=== PATIENT | female | born 1985 | race Caucasian/White ===

== ENCOUNTER 2021-06-07 18:38 | Emergency (ER) | payer BC, SELFPAY ==
[2021-06-07 18:40] VITALS: BP 129/91; PULSE 112; RESP 18; TEMP 36.3; O2SAT 98; BMI 28.2
--- NOTE | 2021-06-07 19:05 | US_ITS ---
STUDY: FIRST TRIMESTER OBSTETRICAL ULTRASOUND REASON FOR EXAM: Female, 35 years old vaginal bleeding w/ preg LMP: 03/29/2021 TECHNIQUE: Transvaginal TECHNICAL QUALITY: Adequate. PRIOR ULTRASOUND: None. FINDINGS: There is no demonstrated intrauterine gestational sac. The uterus measures 9.0 x 4.3 x 4.3 cm. 2.9 cm myometrial fibroid. The cervix is closed. The right ovary measures 2.5 x 1.1 x 1.6 cm. There is no right ovarian cyst. There is no visualized right adnexal mass or complex lesion. The left ovary measures 2.5 x 2.5 x 1.9 cm. 1.4 cm simple appearing cyst. There is no visualized left adnexal mass or complex lesion. There is no fluid in the cul de sac. US/Transvaginal w/Preg US IMPRESSION: No intrauterine identified. No complex adnexal masses or pelvic free fluid. Electronically Signed: Braulio Flores MD ([place]) at 21:00 EDT ,
--- NOTE | 2021-06-07 19:25 | ED.VIS.FEGU ---
HPI <Dr. Blanca العلي MD - Last Filed: 06/08/21 01:14> HPI - Female History of Present Illness Chief Complaint: Vag Bld, Preg <VESTA PRIETO - Last Filed: 06/08/21 00:57> HPI - Female History of Present Illness Informant: patient Pain Pain: Positive for Pelvic Pain (Cramping) Onset: Today (This morning) Context: Gradual Onset Timing: Continuous Quality: Positive for Cramping Location: Suprapubic Current Severity: 3/10 Bleeding Issue: Positive for Vaginal bleeding Onset: - (30 minutes prior to arrival) Current Severity: Mild Associated Symptoms Associated Symptoms: Negative for Dysuria, Frequency and Urgency Test: Positive (4 at home tests) P: 0 Ab: 1 Narrative Narrative: Patient presents secondary to vaginal bleeding that began 30 minutes prior to arrival. Patient states this morning she began to have lower abdominal cramping and 1 spot of bright red blood when wiping. At that time, patient called [facility] gynecology office. Patient has appointment on Wednesday for first visit, but was told to come to the emergency department should bleeding develop. Patient states cramping is 3 out of 10, and appears comfortable in the bed. Patient states her last menstrual period was April 01, and has taken 4 at home tests. Recent Illness/Hospitalization: No PFSH <Dr. Blanca العلي MD - Last Filed: 06/08/21 01:14> PFSH Medical History Anxiety GERD (gastroesophageal reflux disease) Home Medications omeprazole 20 mg PO DAILY 06/07/21 [History Last Taken Unknown] Allergy/AdvReac Type Severity Reaction Status Date / Time No Known Allergies Allergy Verified 06/07/21 18:39 Surgical History no surgical history Social History (Updated 06/07/21 @ 19:32 by VESTA PRIETO) Smoking Status: Never smoker alcohol intake: current alcohol intake frequency: holidays/special occasions only substance use type: does not use <VESTA PRIETO - Last Filed: 06/08/21 00:57> PFSH no surgical history <VESTA PRIETO - Last Filed: 06/08/21 00:57> ROS ED Constitutional Constitutional ED: Denies chills, fever(s) or sweats Eyes Eyes: Denies change in vision ENT ENT ED: Denies ear pain, rhinorrhea or sore throat Cardiovascular Cardiovascular: Denies chest pain or palpitations Respiratory/Chest Respiratory/Chest: Denies cough or dyspnea Gastrointestinal Gastrointestinal: Reports nausea and other Details: Lower abdominal cramping. ; Denies vomiting Genitourinary Genitourinary ED: Reports vaginal bleeding; Denies dysuria, hematuria or urinary frequency Musculoskeletal Musculoskeletal: Denies myalgias Integumentary Denies rash Neurologic Neurologic: Denies headache(s) or weakness Psychiatric Psychiatric: Reports anxiety; Denies depression Endocrine Endocrinology: Denies polydipsia, polyphagia or polyuria EXAM <Dr. Blanca العلي MD - Last Filed: 06/08/21 01:14> Physical Exam Const Vital Signs: 06/07/21 18:40 06/07/21 20:39 Temperature 97.3 F L Temperature Source Temporal Pulse Rate 112 H Respiratory Rate 18 17 Blood Pressure 129/91 H Blood Pressure Mean 103 Pulse Ox 98 Oxygen Delivery Method Room Air <VESTA IDA - Last Filed: 06/08/21 00:57> Physical Exam Const Vital Signs: 06/07/21 18:40 06/07/21 20:39 Temperature 97.3 F L Temperature Source Temporal Pulse Rate 112 H Respiratory Rate 18 17 Blood Pressure 129/91 H Blood Pressure Mean 103 Pulse Ox 98 Oxygen Delivery Method Room Air Positive well nourished and well developed General Appearance ED: well developed HEENT Reports moist mucous membranes Negative for trauma or tenderness Eyes PERRL and EOMs intact bilaterally Neck no lymphadenopathy and supple Chest Wall inspection of chest normal and palpation of chest normal Resp normal respiratory effort and clear to auscultation bilaterally Cardio regular rate, regular rhythm and no murmurs GI normal to inspection, nondistended, normoactive bowel sounds and soft to palpation no CVA tenderness Speculum Exam - Vagina: vaginal bleeding Extremity normal to inspection General Extremety ED: Negative for edema or tenderness General Extremity: Negative for edema Neuro oriented x3 Sensorium / Orientation: alert Psych mental status grossly normal Skin no rashes or lesions noted MDM <Dr. Blanca العلي MD - Last Filed: 06/08/21 01:14> [facility] Lab Data Labs: Laboratory Results - last 24 hr 06/07/21 06/07/21 19:20 19:20 HCG, Quant 68 H Blood Type A NEGATIVE Radiography Diagnostic Testing: Clinical Impression(s) from Imaging Studies Obstetrics Ultrasound 06/07/21 19:05 IMPRESSION: No intrauterine identified. No complex adnexal masses or pelvic free fluid. Electronically Signed: Braulio Flores MD ([place]) at 21:00 EDT Reading Location ID and State: [facility] / [place] , Service support , Treatment and Re-Evaluation Narrative: Patient seen and evaluated with [employer] student. I personally interviewed and examined the patient. I was involved in all aspects of patient's orders, interpretation of results, and treatment. Patient presents secondary to vaginal bleeding with . She believes she is approximately 10 weeks . She has had 4 positive home test. She had a single episode of spotting this morning followed by cramping and bleeding this evening. Blood type is A-. She is scheduled to see [facility] GEOSCIENCE TECHNICIAN on Wednesday. Patient sitting upright in bed no acute distress. Nontoxic-appearing. Head and neck examination unremarkable. Heart is regular rate and rhythm. Lung sounds are clear. Abdomen is soft with no focal tenderness. Active bowel sounds are noted. hCG quant obtained and equal to 68. Blood type is confirmed as a negative. Pelvic ultrasound reveals no evidence of intrauterine . No adnexal mass appreciated. Cervix is closed. I discussed with patient and at bedside that she has either miscarried early in the course of the or dates are off and she is not nearly as far along as we believed. I spoke with Dr. Lancaster, on-call for [facility] GEOSCIENCE TECHNICIAN. Patient is to be seen in the office on Wednesday and will have a repeat quant obtained at that time. Because her quant is so low at this time RhoGAM is not needed. This was all discussed with patient and family as well. <VESTA PRIETO - Last Filed: 06/08/21 00:57> [facility] Narrative Medical decision making narrative: Quantitative hCG, ABO Rh blood type, transvaginal ultrasound ordered. Patient states pain is tolerable and does not need medication. Lab Data Labs: Laboratory Results - last 24 hr 06/07/21 06/07/21 19:20 19:20 HCG, Quant 68 H Blood Type A NEGATIVE Radiography Diagnostic Testing: Clinical Impression(s) from Imaging Studies Obstetrics Ultrasound 06/07/21 19:05 IMPRESSION: No intrauterine identified. No complex adnexal masses or pelvic free fluid. Electronically Signed: Braulio Flores MD ([place]) at 21:00 EDT , Treatment and Re-Evaluation Narrative: Patient's serum hCG is at 68, and transvaginal ultrasound identifies no intrauterine . Results discussed with patient and . Patient is agreeable to discharge home. Patient will keep scheduled appointment on Wednesday with [facility] gynecology/obstetrics. At this time, a repeat serum hCG will be drawn. Patient is aware of symptoms with which to return to the emergency department. Discharge Plan Triage Chief Complaint: Vag Bld, Preg ED Provider: Blanca العلي Dx/Rx/DC Orders Clinical Impression: Threatened miscarriage Instructions: ED Possible Miscarriage ... Prescriptions: No Action omeprazole 20 mg Capsule,Delayed Release(Dr/Ec) 20 mg PO DAILY RF: 0 Primary Care Provider: Giovani Bailon Referrals: Giovani Bailon DO [Primary Care Provider] - Mary Lancaster DO [STAFF PHYSICIAN] - Keep Zac appointment Activity Restrictions/Additional Instructions: Follow-up with GEOSCIENCE TECHNICIAN on Wednesday as scheduled. They will repeat your blood work at that time. Disposition Disposition: Home, Self Care Discharge Date/Time: 06/07/21 21:49
[2021-06-07 20:22] LABS: hCG Titer Quant., Serum 68 mIU/mL (1-3)
[2021-06-07 20:39] VITALS: RESP 17
== END 2021-06-07 21:49 | disposition home or self-care (01) ==
PROVIDERS: Emergency Provider Emergency Medicine; PCP Family Medicine; Visit Provider Emergency Medicine
DX: O20.0 Threatened abortion (principal); O99.611 Diseases of the digestive system complicating pregnancy, first trimester; K21.9 Gastro-esophageal reflux disease without esophagitis; Z3A.10 10 weeks gestation of pregnancy
CPT/HCPCS: 76817; 84702; 86900; 86901; 93976; 99283; A4216